=== PATIENT | female | born 1960 | race Caucasian/White ===

== ENCOUNTER 2022-03-29 17:14 | Inpatient (IN) | payer MEDICARE, SELFPAY ==
[2022-03-23 13:16] VITALS: BMI 25.7
--- NOTE | 2022-03-23 13:24 | PC.NURSE ---
Addendum entered by Aye De La Vega RN 03/24/22 12:06: PT INSTRUCTED TO CALL DR. OVERTON OFFICE FOR INSTRUCTIONS ON STOPPING ASPIRIN AND MELOXICAM. PT VERBALIZES UNDERSTANDING. Original Note: Report to the Outpatient Waiting Room, entrance under the green pavilion located off [facility], at time _0930_ on date _[id number]_. OR Time: _1130_. - You and your visitor will be asked a series of questions to screen for COVID 19 for your protection. - Only one visitor is allowed at this time. - The patient visitor is requested to leave or wait in car when not with patient. - A mask is required within the hospital. Patients may have clear liquids (water, carbonated beverages, clear teas, apple juice) until 3 hours prior to surgery with a maximum of 20 ounces. - No food from midnight until time of surgery Take the following medications with a SIP of water the morning of surgery: __Fluoxetine, Hydroxyzine, Linzess, and eye drops Medications to discontinue per physician ____None Date to take last dose Please no make-up, nail tuvaluan, hairspray, perfume, deodorant, or body powder the day of surgery. No jewelry (including any body piercings) or valuables the day of surgery, leave them at home. Please take a shower or bath the night before, or the morning of, surgery with an antibacterial soap. Wear comfortable, loose fitting clothing. - Jewelry must be removed prior to entering the operating room. Rings and piercings that are not removed may be cut off. - The hospital will not accept responsibility for valuables. - Please leave all valuables, including medications, at home the day of surgery. If you are going home after surgery, a licensed funeral car driver must drive you home. - NO public transportation without another adult. - We recommend that an adult stay with you for 24 hours following discharge. - We also recommend that you do not drive, make important decision, drink alcoholic beverages, or take any drugs that were not prescribed by your health care provider for at least 24 hours after your discharge time. Follow any additional instructions given to you from your surgeon. If you or anyone in your household have experienced Covid symptoms in the past week, please notify your surgeon or the nurse liaison at the phone number below for possible testing. Telephone instructions given to ___patient and asked if any additional questions and then verbalized understanding. Patient advised to call surgeon office or pre surgery nurse liaison [phone] if any additional questions.
[2022-03-29] VITALS (11 sets, daily range): BP systolic 96–151; BP diastolic 36–92; PULSE 71–81; RESP 13–20; TEMP 35.7–36.6; O2SAT 96–100
--- NOTE | ~2022-03-29 | XR_ITS ---
EXAMINATION: XR fluoroscopy no charge DATE: 03/29/2022 12:30 CDT INDICATION: LUMBAR INTERBODY FUSION . TECHNIQUE: 3 fluoroscopic images of the lumbar spine were obtained during lumbar interbody fusion per formed by the surgeon. I was not present in the operating room. Fluoroscopy exposure time was 4.9 sec onds. Cumulative dose was 2.87 mGy. COMPARISON: None FINDINGS: Images demonstrate posterior multilevel lumbar fusion with interbody device placement, likely spannin g L2-L5, with overlying soft tissue retractors. Minimal grade 1 listheses present in the upper lumbar spine. IMPRESSION: Fluoroscopic documentation of lumbar interbody fusion. Please refer to the operative note for complet e procedural details. Reviewed, dictated and finalized at location K. IMPRESSION: Fluoroscopic documentation of lumbar interbody fusion. Please refer to the oper ative note for complete procedural details.
--- NOTE | 2022-03-29 08:53 | WPDANESEPPF ---
Anes - Initial Pre Proc Eval Procedure: Operation Date: 03/29/22 11:30 Proposed Procedures p L2-3, L3-4 Posterior Lumbar Interbody Fusion - Craig Chen MD Date/Time: 03/29/22 08:53 Surgeon: Craig Chen MD Pre Op Diagnosis: lumbar spondylosis, lumbar stenosis Patient Data Age: 62 Gender: F Height: 1.6 m Weight: 66 kg Allergies Allergy/AdvReac Type Severity Reaction Status Date / Time Sulfa (Sulfonamide Allergy Severe Hives Verified 03/23/22 13:06 Antibiotics) Home Medications Medication Instructions Recorded Confirmed Type aspirin 81 mg tablet,delayed 81 mg PO DAILY 03/23/22 03/29/22 History release brimonidine 0.2 % eye drops 1 drp LEFT EYE TID 03/23/22 03/29/22 History estradiol 2 mg tablet 2 mg PO QAM 03/23/22 03/29/22 History fluoxetine 40 mg capsule 40 mg PO QAM 03/23/22 03/29/22 History fluticasone propionate 50 1 ea intranasal BID 03/23/22 03/29/22 History mcg/actuation nasal spray,suspension hydroxyzine HCl 25 mg tablet 25 mg PO BID 03/23/22 03/29/22 History ketorolac 0.5 % eye drops 1 drp EACH EYE QID 03/23/22 03/29/22 History linaclotide 145 mcg capsule 145 mcg PO QAM 03/23/22 03/29/22 History (Linzess) losartan 100 1 tablet PO QAM 03/23/22 03/29/22 History mg-hydrochlorothiazide 25 mg tablet meloxicam 15 mg tablet 15 mg PO QAM 03/23/22 03/29/22 History ofloxacin 0.3 % eye drops 1 drp EACH EYE TID 03/23/22 03/29/22 History omeprazole 40 mg capsule,delayed 40 mg PO QAM 03/23/22 03/29/22 History release Patient hx anesthesia problems: none Family hx anesthesia problems: none Results Review: All pre-operative results and documents have been reviewed as part of the pre-operative evaluation. [facility] Past Medical History Medical History (Updated 03/29/22 @ 08:54 by Nathan Espinal MD) Chronic GERD Chronic narcotic use Depression HTN (hypertension) PONV (postoperative nausea and vomiting) Social History Social History Years smoked: 40 Smoking status: Former smoker Tobacco type: cigarettes Smoking end date: 01/21/22 Living arrangements: with family Spiritual care concerns: No Anes - Eval Final PreProcedure Day of Procedure 03/29/22 08:53 Patient weight: normal Heart: regular rate and rhythm Lungs: clear to auscultation and normal air movement Airway: Mallampati scale class II Neurological: alert and oriented Last oral intake: >/= 8 hours ASA classification: III Emergent: no Anesthetic plan: proceed Anesthesia type and monitoring: general ETT Results Review: All pre-operative results and documents have been reviewed as part of the pre-operative evaluation. Informed Consent: The patient's anesthetic plan and its attendant risks and benefits were discussed with the patient/family/POA. Questions were solicited and answers provided to the satisfaction of the patient/family/POA.
[2022-03-29] MEDS: SCOPOLAMINE 1.5 MG PATCH TRANSDERM (10:15)
[2022-03-29] MEDS: LACTATED RINGERS 1,000 ML 30 ML IV CONT ×3 (10:15→16:35)
--- NOTE | 2022-03-29 11:10 | SUR.PREOP ---
Resting without needs or complaints.
--- NOTE | 2022-03-29 12:10 | PM.IMHP ---
H&P: HPI History of Present Illness Date/Time: 03/29/22 12:10 Chief Complaint: Back and leg pain Narrative: Silva is a 62-year-old female with back and leg pain related to spondylosis and stenosis at levels above the previous operation who presents now for L2-3 and L3-4 posterior lumbar interbody fusion. She has not changed since we saw her last. She has no specific muscle group weakness. She has no bowel or bladder difficulty. Review of Systems Review of Systems: Negative for 12 systems except as noted above. She specifically denies chest pain, shortness of breath, fever, chills, cough, nausea, vomiting or new urinary or bowel symptoms. [facility] Past Medical History Medical History Chronic GERD Chronic narcotic use Depression HTN (hypertension) PONV (postoperative nausea and vomiting) Social History Social History Years smoked: 40 Smoking status: Former smoker Tobacco type: cigarettes Smoking end date: 01/21/22 Living arrangements: with family Spiritual care concerns: No Meds Home Medications and Allergies Home Medications Medication Instructions Recorded Confirmed Type aspirin 81 mg tablet,delayed 81 mg PO DAILY 03/23/22 03/29/22 History release brimonidine 0.2 % eye drops 1 drp LEFT EYE TID 03/23/22 03/29/22 History estradiol 2 mg tablet 2 mg PO QAM 03/23/22 03/29/22 History fluoxetine 40 mg capsule 40 mg PO QAM 03/23/22 03/29/22 History fluticasone propionate 50 1 ea intranasal BID 03/23/22 03/29/22 History mcg/actuation nasal spray,suspension hydroxyzine HCl 25 mg tablet 25 mg PO BID 03/23/22 03/29/22 History ketorolac 0.5 % eye drops 1 drp EACH EYE QID 03/23/22 03/29/22 History linaclotide 145 mcg capsule 145 mcg PO QAM 03/23/22 03/29/22 History (Linzess) losartan 100 1 tablet PO QAM 03/23/22 03/29/22 History mg-hydrochlorothiazide 25 mg tablet meloxicam 15 mg tablet 15 mg PO QAM 03/23/22 03/29/22 History ofloxacin 0.3 % eye drops 1 drp EACH EYE TID 03/23/22 03/29/22 History omeprazole 40 mg capsule,delayed 40 mg PO QAM 03/23/22 03/29/22 History release Allergies Allergy/AdvReac Type Severity Reaction Status Date / Time Sulfa (Sulfonamide Allergy Severe Hives Verified 03/23/22 13:06 Antibiotics) Vital Signs Vital Signs - 24 hr 03/29/22 10:22 Temperature 98 F Pulse Rate 81 Respiratory Rate 20 Blood Pressure 151/92 H Pulse Oximetry 98 Oxygen Delivery Room Air Exam Narrative: The patient is a normal appearing white female supine in a hospital bed in no acute distress. She is awake, alert, oriented x3 with good fund of knowledge, recall events and fluent speech. Her face is symmetrical and her eyes were conjugate. There is no upper extremity drift, dysmetria or dyspraxia. Strength is 5/5 in all muscle groups of the bilateral lower extremities to direct confrontation in the laying position. Sensation is intact to light touch throughout the lower extremities. Clear to auscultation Regular rate and rhythm Assessment and Plan Assessment and plan (1) Lumbar stenosis: Code(s): M48.061 - Spinal stenosis, lumbar region without neurogenic claudication Status: Acute (2) Lumbar spondylosis: Code(s): M47.816 - Spondylosis without myelopathy or radiculopathy, lumbar region Status: Acute Plan Silva is a 62-year-old female with back and leg pain related to the above pathology presents now for L2-3 and L3-4 posterior lumbar interbody fusion. I again described to her that operation, its risks, potential benefits, the operative and postoperative course in detail and answered all her questions personally. She indicates understanding and elects to proceed with that operation.
--- NOTE | 2022-03-29 12:14 | WPDHPUPDATE1 ---
History and Physical Update Update Date/Time: 03/29/22 12:14 History and Physical has been reviewed, including an updated exam of the patient. There are NO changes in the patient's condition. Risks, benefits, and alternatives have been discussed and questions answered. Patient agrees to proceed with procedure.
[2022-03-29] MEDS: ceFAZolin 2 GM/D5W 50 ML 2 GM/50 ML BAG IVPB (12:52)
[2022-03-29] MEDS: LIDOCAINE/EPINEPHRINE 0.5%/1:200,000 50 ML VIAL INFILTRATE (13:28)
--- NOTE | 2022-03-29 15:47 | W.PM.PROC2 ---
Procedure Note - Detailed Date of Procedure 03/29/22 Pre-op Diagnosis lumbar spondylosis, lumbar stenosis Post-op Diagnosis Same Procedure Performed L2-3 and L3-4 posterior lumbar interbody fusion with revision of posterior instrumentation L4 L5 Surgeon Craig Chen MD Check Processing Clerk Nicolas Saxena Silva is a 62-year-old female with spondylosis and stenosis at the levels above her previous operation who presents for decompression fusion L2-4. Findings Stenosis and spondylosis Description of Procedure Silva was brought to the operating room in the supine position, was sedated, intubated and placed under general anesthesia in routine fashion. She was then turned into the prone position on a [place] table. The above operation her back was examined marked for incision Repka, prepped and draped in routine sterile fashion. Incision was marked over the L2-3 5 spinous processes in the midline. This area was injected with 0.5% lidocaine with [id number] epinephrine. Intravenous antibiotics given prior to incision. Incision was made with a 10 blade scalpel down to the lumbodorsal fascia. Subperiosteal dissection of the muscle soft tissue with spinous process and lamina at L2-4 was performed with a subperiosteal elevator and Bovie cautery. A verifying x-rays obtained to verify the level of operation. The spinous processes removed old to an L3 using a Trish rongeur. Kerrison punches, curved curettes and a Leksell rongeur were used to remove bone and ligament in the midline until the soft contents of the canal were encountered. A Midas Charles drill was used to resect the pars bilaterally at L2 and L3. The inferior articular process and facet of L2 and L3 could then be removed bilateral stenosis spinous processes were stripped free of soft tissue and morselized for later use interbody autograft. Kerrison punches and curved curettes were used to define a plane with dura and removed bone and ligament flush with the pedicle and through the foramina widely decompressing the exiting nerve roots. With the thecal sac retracted and protected the disc spaces were entered on the right using an 11 blade scalpel. Scrapers, curettes of various configurations, pituitary rongeur and a rasp were used to remove as much cartilaginous endplate and disc material as possible down to bleeding cortical flat surfaces on the opposing bones. This the disc space were sized and a 8 mm device was chosen for L3-4 and a 9 mm device for L2-3. These were filled with local autograft bone. The disc space was likewise filled with local autograft bone medially and anteriorly. The interbody devices were then placed with 2-3 mm countersink within the disc space diagonally. These were 22 mm interbody devices. Pedicle screw instrumentation was then performed at L2 and L3 by observing and palpating the pedicle while ankle was means particular process above the pedicle using Midas Charles drill with an a.m. 8 bit. The pedicle was then cannulated with a pedicle probe checked continuity with the ball probe, tapped with a 5.5 mm tap and a 6.5 x 50 mm screw was placed into each pedicle on each side. The caps at L4-L5 were removed with the appropriate armored truck driver. New 70 mm rods were placed some within the screw heads from 2-5. These were secured in position using the caps for that purpose. These were definitively tightened with the torque and anti torque device. An x-ray was performed to confirm good placement of the instrumentation which was confirmed. The wound was then copiously irrigated with bacitracin irrigation all bleeding was stopped with bipolar, Bovie cautery and Gelfoam thrombin powder. A medium Hemovac drain was left in the subfascial position. After the inferior and right of the incision. The wound was then closed in layered fashion with 2-0 Vicryl interrupted sutures in the some lumbodorsal fascia and Addy's layer. 3-0 Vicryl buried interrupted sutures were placed in the dermis and the ski
[2022-03-29] MEDS: fentaNYL CITRATE INJ (*CRX) 100 MCG/2 ML VIAL 25 MCG IV PUSH ×8 (16:14→16:39)
--- NOTE | 2022-03-29 16:31 | SUR.PHASEI ---
1631- Call to Jazmín Peoples CRNA patient has been given 125MCG of Fentanyl IVP and patient states it has not given her relief, pain remains severe. Per YAYA Noyola give patient remaining doses of Fentanyl for a total of 200MCG and administer 1MG dilaudid IVP. Will place orders and administer, see NOV.
[2022-03-29] MEDS: HYDROmorphone HCL INJ (*CRX) 1 MG/ML SYR IV PUSH (16:44)
--- NOTE | 2022-03-29 17:40 | ADMGEN ---
This patient, Silva Santana, was admitted to 2 Medical Room 259-. Patient/family oriented to hospital policies and general routines including ID bracelet, bed and alarms, visiting hours, pain management, procedures, bathroom and other care routines, personal items, smoking policy, room service/diet, and visiting hours. Information on how to activate the Rapid Response Team has been discussed. Patient/Family are encouraged to report perceived risks to care and to ask questions if they do not understand what they are told or what they should do.
[2022-03-29] MEDS: KCL 20 MEQ/D5/0.45% SOD CHL 1,000 ML 100 ML IV CONT (17:47)
[2022-03-29] MEDS: hydrOXYzine HCL 25 MG TABLET PO (17:48)
[2022-03-29] MEDS: ONDANSETRON INJ 4 MG/2 ML VIAL IV PUSH (17:48)
[2022-03-29] MEDS: HYDROmorphone HCL INJ (*CRX) 1 MG/ML SYR 0.5 MG IV PUSH ×2 (17:49→21:23)
[2022-03-29] MEDS: OFLOXACIN 0.3% OPHTH SOLN 5 ML BTL 1 DROP EACH EYE ×2 (17:58→21:26)
[2022-03-29] MEDS: KETOROLAC 0.5% OP SOLN 5 ML BOTTLE 1 DROP EACH EYE ×2 (17:58→20:03)
[2022-03-29] MEDS: HYDROcodone/acetaminophen (*CRX) 5-325 MG TABLET 1 TAB PO (20:02)
[2022-03-29] MEDS: DOCUSATE SODIUM 100 MG CAPSULE PO (20:02)
[2022-03-29] MEDS: FLUTICASONE PROPIONATE 0.05% NA SPR 16 GM BTL (*BKC) 1 SPRAY NASAL (20:03)
[2022-03-29] MEDS: BRIMONIDINE TARTRATE 0.2% OP SOLN 5 ML BTL 1 DROP LEFT EYE (20:03)
[2022-03-30 00:32] VITALS: BP 115/65; PULSE 79; RESP 20; TEMP 36.4; O2SAT 100
[2022-03-30] MEDS: HYDROcodone/acetaminophen (*CRX) 10-325 MG TABLET 1 TAB PO ×5 (00:40→21:07)
[2022-03-30 04:05] VITALS: BP 111/67; PULSE 68; RESP 20; TEMP 36.6; O2SAT 97
[2022-03-30] MEDS: KCL 20 MEQ/D5/0.45% SOD CHL 1,000 ML 100 ML IV CONT (04:43)
[2022-03-30] MEDS: OFLOXACIN 0.3% OPHTH SOLN 5 ML BTL 1 DROP EACH EYE ×3 (05:39→21:08)
[2022-03-30] MEDS: BRIMONIDINE TARTRATE 0.2% OP SOLN 5 ML BTL 1 DROP LEFT EYE ×3 (05:39→22:14)
[2022-03-30] MEDS: estradioL 1 MG TABLET 2 MG PO (08:28)
[2022-03-30] MEDS: FLUTICASONE PROPIONATE 0.05% NA SPR 16 GM BTL (*BKC) 1 SPRAY NASAL ×2 (08:29→21:08)
[2022-03-30] MEDS: FLUoxetine HCL 20 MG CAPSULE 40 MG PO (08:29)
[2022-03-30] MEDS: LINACLOTIDE 145 MCG CAPSULE PO (08:30)
[2022-03-30] MEDS: CYCLOBENZAPRINE HCL 10 MG TABLET PO (08:30)
[2022-03-30] MEDS: PANTOPRAZOLE 40 MG TABLET PO ×2 (08:31→21:06)
[2022-03-30] MEDS: DOCUSATE SODIUM 100 MG CAPSULE PO ×2 (08:31→21:07)
[2022-03-30] MEDS: LOSARTAN POTASSIUM 100 MG TABLET PO (08:32)
[2022-03-30] MEDS: hydroCHLOROthiazide 25 MG TABLET PO (08:32)
[2022-03-30] MEDS: hydrOXYzine HCL 25 MG TABLET PO ×2 (08:33→16:46)
[2022-03-30] MEDS: KETOROLAC 0.5% OP SOLN 5 ML BOTTLE 1 DROP EACH EYE ×4 (08:33→21:08)
--- NOTE | 2022-03-30 09:22 | WPDPN ---
Progress Note: A&P Assessment and Plan (1) Lumbar spondylosis: Code(s): M47.816 - Spondylosis without myelopathy or radiculopathy, lumbar region Status: Acute (2) Lumbar stenosis: Code(s): M48.061 - Spinal stenosis, lumbar region without neurogenic claudication Status: Acute Plan Silva is doing well postop day 1 status post L2-3 and L3-4 posterior lumbar interbody fusion. She will enjoy out of bed activity today and work with physical and occupational therapy towards progressive activity. We will try to wean her IV pain medicine. We will leave her drain in until tomorrow. Subjective Date/time seen: 03/30/22 09:22 Silva is postop day 1 status post L 2 3 and L3-4 posterior lumbar interbody fusion. She is doing well. She has expected discomfort at her operative site. She is having no new issues in her lower extremities. She is not having any bowel or bladder issues. She has been up to the bathroom once since surgery yesterday Review of Systems Neurologic: Comments: no weakness or numbness Exam Neuro: Other: strength is normal in the bilateral lower extremities to direct confrontation Sensation is intact to light touch throughout the lower extremities Dressing is clean dry intact. Objective Data Vital Signs Vital Signs: Vital Signs - 24 hr 03/29/22 10:22 03/29/22 15:57 03/29/22 16:10 Temperature 98 F 97.4 F L Pulse Rate 81 71 73 Respiratory Rate 20 13 17 Blood Pressure 151/92 H 96/36 L 110/60 Pulse Oximetry 98 100 100 Oxygen Delivery Room Air Simple Face Mask Simple Face Mask Oxygen Flow Rate 6 6 03/29/22 16:25 03/29/22 16:35 03/29/22 16:50 Temperature 97.2 F L Pulse Rate 77 75 76 Respiratory Rate 20 14 14 Blood Pressure 99/61 L 115/63 128/65 Pulse Oximetry 100 97 96 Oxygen Delivery Room Air Nasal Cannula Nasal Cannula Oxygen Flow Rate 2 2 03/29/22 17:05 03/29/22 17:40 03/29/22 17:55 Temperature 97.8 F 97.5 F L Pulse Rate 78 77 72 Respiratory Rate 13 14 14 Blood Pressure 114/68 126/77 124/70 Pulse Oximetry 99 97 100 Oxygen Delivery Nasal Cannula Oxygen Flow Rate 2 03/29/22 18:46 03/29/22 18:48 03/29/22 20:42 Temperature 97.6 F 96.2 F L Pulse Rate 72 75 Respiratory Rate 18 18 Blood Pressure 127/71 123/77 Pulse Oximetry 100 100 Oxygen Delivery Room Air Oxygen Flow Rate 03/30/22 00:32 03/30/22 04:05 Temperature 97.5 F L 97.9 F Pulse Rate 79 68 Respiratory Rate 20 20 Blood Pressure 115/65 111/67 Pulse Oximetry 100 97 Oxygen Delivery Oxygen Flow Rate Intake/Output Intake/Output: Intake & Output 03/27/22 03/28/22 03/29/22 03/30/22 23:59 23:59 23:59 23:59 Intake Total 3850 1460 Output Total 50 610 Balance 3800 850 Meds/Results Medications: Active Medications Generic Name Dose Route Start Last Admin Trade Name Freq PRN Reason Stop Dose Admin Hydrocodone Bitart/Acetaminophen 1 tab 03/29/22 17:14 03/29/22 20:02 Hydrocodone/Acetaminophen (*Crx) 5-325 Mg Tablet PO 1 tab Q4H PRN Administration Mild Pain (1-3) Hydrocodone Bitart/Acetaminophen 1 tab 03/29/22 17:14 03/30/22 08:33 Hydrocodone/Acetaminophen (*Crx) 10-325 Mg Tablet PO 1 tab Q4H PRN Administration Moderate Pain (4-6) Al Hydrox/Mg Hydrox/Simethicone 20 ml 03/29/22 17:14 Mag Hydrox/Al Hydrox/Simeth 30 Ml Udc PO Q4H PRN Indigestion/Heartburn Bisacodyl 10 mg 03/29/22 17:14 Bisacodyl 10 Mg Suppository RECTAL DAILY PRN Constipation Brimonidine Tartrate 1 drop 03/29/22 17:14 03/30/22 05:39 Brimonidine Tartrate 0.2% Op Soln 5 Ml Btl LEFT EYE 1 drop Q8HR SLICK Administration Cyclobenzaprine HCl 10 mg 03/29/22 17:14 03/30/22 08:30 Cyclobenzaprine Hcl 10 Mg Tablet PO 10 mg TID PRN Administration Muscle Spasms Docusate Sodium 100 mg 03/29/22 21:00 03/30/22 08:31 Docusate Sodium 100 Mg Capsule PO 100 mg Q12HR SLICK Administration Estradiol 2 mg
[2022-03-30 09:45] VITALS: BP 106/64; PULSE 70; RESP 16; TEMP 36.4; O2SAT 95
--- NOTE | 2022-03-30 10:29 | WPDANESPN ---
Anes - Prog Note Post-Op Date/Time: 03/30/22 10:29 Cardiovascular status: normal Respiratory status: normal Airway patency: baseline Mental status: baseline Post-Op hydration status: normal Vital Signs: Last Vital Signs Temp 36.4 C L 03/30/22 09:45 Pulse 70 03/30/22 09:45 Resp 16 03/30/22 09:45 BP 106/64 03/30/22 09:45 Pulse Ox 95 03/30/22 09:45 O2 Del Method Room Air 03/30/22 08:00 O2 Flow Rate 2 03/29/22 17:05 Pain Score (VAS): 2 I/O: Intake & Output 03/29/22 03/30/22 03/30/22 23:59 07:59 15:59 Intake Total 850 1240 220 Output Total 50 610 Balance 800 630 220 03/29/22 10:08 Blood Type O Positive Antibody Screen Negative Post-procedural complaints: none Patient Feedback: Patient satisfied with anesthetic care.
[2022-03-30] MEDS: HYDROmorphone HCL INJ (*CRX) 1 MG/ML SYR 0.5 MG IV PUSH ×3 (11:52→22:17)
[2022-03-30 12:05] VITALS: BMI 26.8
[2022-03-30 14:00] VITALS: BP 100/55; PULSE 67; RESP 16; TEMP 36.3; O2SAT 93
[2022-03-30 18:04] VITALS: BP 106/50; PULSE 70; RESP 16; TEMP 36.1; O2SAT 95
[2022-03-30 21:01] VITALS: BP 88/56; PULSE 58; RESP 16; TEMP 36.4
[2022-03-31] VITALS (7 sets, daily range): BP systolic 109–115; BP diastolic 50–75; PULSE 65–85; RESP 16; TEMP 36.1–36.7; O2SAT 94–98
[2022-03-31] MEDS: HYDROcodone/acetaminophen (*CRX) 10-325 MG TABLET 1 TAB PO ×5 (00:58→21:33)
[2022-03-31] MEDS: CYCLOBENZAPRINE HCL 10 MG TABLET PO (03:02)
[2022-03-31] MEDS: BRIMONIDINE TARTRATE 0.2% OP SOLN 5 ML BTL 1 DROP LEFT EYE ×3 (05:16→23:14)
[2022-03-31] MEDS: OFLOXACIN 0.3% OPHTH SOLN 5 ML BTL 1 DROP EACH EYE ×3 (05:16→23:14)
[2022-03-31] MEDS: estradioL 1 MG TABLET 2 MG PO (08:36)
[2022-03-31] MEDS: FLUTICASONE PROPIONATE 0.05% NA SPR 16 GM BTL (*BKC) 1 SPRAY NASAL ×2 (08:36→21:36)
[2022-03-31] MEDS: LOSARTAN POTASSIUM 100 MG TABLET PO (08:37)
[2022-03-31] MEDS: SENNA/DOCUSATE SODIUM TABLET 1 TAB PO ×2 (08:37→21:37)
[2022-03-31] MEDS: LINACLOTIDE 145 MCG CAPSULE PO (08:37)
[2022-03-31] MEDS: FLUoxetine HCL 20 MG CAPSULE 40 MG PO (08:37)
[2022-03-31] MEDS: PANTOPRAZOLE 40 MG TABLET PO ×2 (08:37→21:38)
[2022-03-31] MEDS: hydroCHLOROthiazide 25 MG TABLET PO (08:39)
[2022-03-31] MEDS: KETOROLAC 0.5% OP SOLN 5 ML BOTTLE 1 DROP EACH EYE ×4 (08:40→21:36)
[2022-03-31] MEDS: DOCUSATE SODIUM 100 MG CAPSULE PO ×2 (08:45→23:14)
[2022-03-31] MEDS: hydrOXYzine HCL 25 MG TABLET PO ×2 (08:45→17:17)
--- NOTE | 2022-03-31 11:51 | PCPTNOTE ---
The patient treatment was not able to be completed this morning. PT attempted 2x to see patient. Patient waiting for pain meds on first attempt and then eating lunch for second attempt. Will plan to continue treatment per plan of care.
[2022-03-31] MEDS: HYDROmorphone HCL INJ (*CRX) 1 MG/ML SYR 0.5 MG IV PUSH ×3 (12:26→23:18)
--- NOTE | 2022-03-31 12:38 | WPDPN ---
Progress Note: A&P Assessment and Plan (1) Lumbar spondylosis: Code(s): M47.816 - Spondylosis without myelopathy or radiculopathy, lumbar region Status: Acute (2) Lumbar stenosis: Code(s): M48.061 - Spinal stenosis, lumbar region without neurogenic claudication Status: Acute Plan Silva is progressing slowly. Will continue to attempt to wean IV pain medicine. She will work with Physical and Occupational therapy toward independent transfers and ambulation. Subjective Date/time seen: 03/31/22 12:38 Silva is postop day 2 status post two-level posterior lumbar interbody fusion. She is complaining of significant pain near her operative site and in her back. It seems somewhat out of proportion to her behavior and she arrived in pain even with just removing tape. She has been ambulatory but is not yet transferring independently. Exam Narrative: Strength and sensation are normal in the bilateral lower extremities to direct confrontation. Dressing is clean dry and intact. Objective Data Vital Signs Vital Signs: Vital Signs - 24 hr 03/30/22 13:53 03/30/22 14:49 03/30/22 14:00 Temperature 97.3 F L Pulse Rate 67 Respiratory Rate 16 Blood Pressure 100/55 L Pulse Oximetry 93 Oxygen Delivery Room Air Room Air 03/30/22 18:04 03/30/22 21:01 03/30/22 20:00 Temperature 97.0 F L 97.6 F Pulse Rate 70 58 L Respiratory Rate 16 16 Blood Pressure 106/50 L 88/56 L Pulse Oximetry 95 Oxygen Delivery Room Air 03/31/22 01:03 03/31/22 05:21 03/31/22 09:52 Temperature 97.6 F 97.6 F 98.0 F Pulse Rate 65 79 74 Respiratory Rate 16 16 16 Blood Pressure 115/54 L 111/56 L 109/50 L Pulse Oximetry 95 98 94 Oxygen Delivery 03/31/22 08:45 Temperature Pulse Rate Respiratory Rate 16 Blood Pressure Pulse Oximetry 94 Oxygen Delivery Room Air Intake/Output Intake/Output: Intake & Output 03/28/22 03/29/22 03/30/22 03/31/22 23:59 23:59 23:59 23:59 Intake Total 3850 2200 720 Output Total 50 1160 1155 Balance 3800 1040 -435 Meds/Results Medications: Active Medications Generic Name Dose Route Start Last Admin Trade Name Freq PRN Reason Stop Dose Admin Hydrocodone Bitart/Acetaminophen 1 tab 03/29/22 17:14 03/29/22 20:02 Hydrocodone/Acetaminophen (*Crx) 5-325 Mg Tablet PO 1 tab Q4H PRN Administration Mild Pain (1-3) Hydrocodone Bitart/Acetaminophen 1 tab 03/29/22 17:14 03/31/22 11:08 Hydrocodone/Acetaminophen (*Crx) 10-325 Mg Tablet PO 1 tab Q4H PRN Administration Moderate Pain (4-6) Al Hydrox/Mg Hydrox/Simethicone 20 ml 03/29/22 17:14 Mag Hydrox/Al Hydrox/Simeth 30 Ml Udc PO Q4H PRN Indigestion/Heartburn Bisacodyl 10 mg 03/29/22 17:14 Bisacodyl 10 Mg Suppository RECTAL DAILY PRN Constipation Brimonidine Tartrate 1 drop 03/29/22 17:14 03/31/22 05:16 Brimonidine Tartrate 0.2% Op Soln 5 Ml Btl LEFT EYE 1 drop Q8HR SLICK Administration Cyclobenzaprine HCl 10 mg 03/29/22 17:14 03/31/22 03:02 Cyclobenzaprine Hcl 10 Mg Tablet PO 10 mg TID PRN Administration Muscle Spasms Docusate Sodium 100 mg 03/29/22 21:00 03/31/22 08:45 Docusate Sodium 100 Mg Capsule PO 100 mg Q12HR SLICK Administration Estradiol 2 mg 03/30/22 09:00 03/31/22 08:36 Estradiol 1 Mg Tablet PO 2 mg QAM SLICK Administration Fluoxetine HCl 40 mg 03/30/22 09:00 03/31/22 08:37 Fluoxetine Hcl 20 Mg Capsule PO 40 mg QAM SLICK Administration Fluticasone Propionate 1 spray 03/29/22 21:00 03/31/22 08:36 Fluticasone Propionate 0.05% Na Spr 16 Gm Btl (*Bkc) NASAL 1 spray Q12HR SLICK Administration Hydrochlorothiazide 25 mg 03/30/22 09:00 03/31/22 08:39 Hydrochlorothiazide 25 Mg Tablet PO 25 mg QAM SLICK Administration Hydromorphone HCl 0.5 mg 03/29/22 17:14 03/31/22 12:26 Hydromorphone Hcl Inj (*Crx) 1 Mg/Ml Syr IV PUSH 0.5 mg Q2H PRN Administration Pain Ra
[2022-04-01] VITALS (9 sets, daily range): BP systolic 98–112; BP diastolic 40–68; PULSE 67–78; RESP 12–18; TEMP 36.2–37.5; O2SAT 94–100
[2022-04-01] MEDS: HYDROcodone/acetaminophen (*CRX) 10-325 MG TABLET 1 TAB PO ×3 (01:41→16:57)
[2022-04-01] MEDS: HYDROmorphone HCL INJ (*CRX) 1 MG/ML SYR 0.5 MG IV PUSH ×2 (04:51→23:13)
[2022-04-01] MEDS: BRIMONIDINE TARTRATE 0.2% OP SOLN 5 ML BTL 1 DROP LEFT EYE ×3 (06:36→21:24)
[2022-04-01] MEDS: OFLOXACIN 0.3% OPHTH SOLN 5 ML BTL 1 DROP EACH EYE ×3 (06:37→21:24)
[2022-04-01] MEDS: FLUTICASONE PROPIONATE 0.05% NA SPR 16 GM BTL (*BKC) 1 SPRAY NASAL ×2 (08:49→21:25)
[2022-04-01] MEDS: KETOROLAC 0.5% OP SOLN 5 ML BOTTLE 1 DROP EACH EYE ×4 (08:49→21:24)
[2022-04-01] MEDS: LOSARTAN POTASSIUM 100 MG TABLET PO (08:50)
[2022-04-01] MEDS: LINACLOTIDE 145 MCG CAPSULE PO (08:50)
[2022-04-01] MEDS: hydroCHLOROthiazide 25 MG TABLET PO (08:50)
[2022-04-01] MEDS: estradioL 1 MG TABLET 2 MG PO (08:50)
[2022-04-01] MEDS: FLUoxetine HCL 20 MG CAPSULE 40 MG PO (08:50)
[2022-04-01] MEDS: PANTOPRAZOLE 40 MG TABLET PO ×2 (08:51→21:25)
[2022-04-01] MEDS: hydrOXYzine HCL 25 MG TABLET PO ×2 (08:55→16:57)
[2022-04-01] MEDS: DOCUSATE SODIUM 100 MG CAPSULE PO ×2 (08:55→21:31)
--- NOTE | 2022-04-01 09:25 | PM.PNGS ---
Progress Note: A&P Assessment and Plan (1) Lumbar spondylosis: Code(s): M47.816 - Spondylosis without myelopathy or radiculopathy, lumbar region Status: Acute Assessment and Plan: Neurologically stble post lumbar fusion Continues to have incisional pain Will add percocet but decrease frequency of IV medication Work with PT today Anticipate d/c tomorrow Subjective Subjective Date/Time Seen: 04/01/22 09:25 PAtient remains with signfiicant pain Taking [place] 10 and IV dilaudid Exam Narrative: Awake, alert oriented x 3 Speech CF DENISHA EOMI Face= TML MAEW with good strength Dressing / incision CDI Objective Data Vital Signs Vital Signs: Vital Signs - 24 hr 03/31/22 09:52 03/31/22 14:10 03/31/22 18:10 Temperature 98.0 F 97.0 F L 97.1 F L Pulse Rate 74 75 85 Respiratory Rate 16 16 16 Blood Pressure 109/50 L 110/75 113/50 L Pulse Oximetry 94 95 94 03/31/22 20:52 04/01/22 00:24 04/01/22 05:15 Temperature 97.6 F 97.2 F L 97.8 F Pulse Rate 75 73 67 Respiratory Rate 16 12 16 Blood Pressure 111/64 111/43 L 108/57 L Pulse Oximetry 98 94 96 Intake/Output Intake/Output: Intake & Output 03/29/22 03/30/22 03/31/22 04/01/22 23:59 23:59 23:59 23:59 Intake Total 3850 2200 3090 420 Output Total 50 1160 2355 1500 Balance 3800 1040 735 -1080 Meds/Results Medications: Active Medications Generic Name Dose Route Start Last Admin Trade Name Freq PRN Reason Stop Dose Admin Hydrocodone Bitart/Acetaminophen 1 tab 03/29/22 17:14 03/29/22 20:02 Hydrocodone/Acetaminophen (*Crx) 5-325 Mg Tablet PO 1 tab Q4H PRN Administration Mild Pain (1-3) Hydrocodone Bitart/Acetaminophen 1 tab 03/29/22 17:14 04/01/22 06:40 Hydrocodone/Acetaminophen (*Crx) 10-325 Mg Tablet PO 1 tab Q4H PRN Administration Moderate Pain (4-6) Al Hydrox/Mg Hydrox/Simethicone 20 ml 03/29/22 17:14 Mag Hydrox/Al Hydrox/Simeth 30 Ml Udc PO Q4H PRN Indigestion/Heartburn Bisacodyl 10 mg 03/29/22 17:14 Bisacodyl 10 Mg Suppository RECTAL DAILY PRN Constipation Brimonidine Tartrate 1 drop 03/29/22 17:14 04/01/22 06:36 Brimonidine Tartrate 0.2% Op Soln 5 Ml Btl LEFT EYE 1 drop Q8HR SLICK Administration Cyclobenzaprine HCl 10 mg 03/29/22 17:14 03/31/22 03:02 Cyclobenzaprine Hcl 10 Mg Tablet PO 10 mg TID PRN Administration Muscle Spasms Docusate Sodium 100 mg 03/29/22 21:00 04/01/22 08:55 Docusate Sodium 100 Mg Capsule PO 100 mg Q12HR SLICK Administration Estradiol 2 mg 03/30/22 09:00 04/01/22 08:50 Estradiol 1 Mg Tablet PO 2 mg QAM SLICK Administration Fluoxetine HCl 40 mg 03/30/22 09:00 04/01/22 08:50 Fluoxetine Hcl 20 Mg Capsule PO 40 mg QAM SLICK Administration Fluticasone Propionate 1 spray 03/29/22 21:00 04/01/22 08:49 Fluticasone Propionate 0.05% Na Spr 16 Gm Btl (*Bkc) NASAL 1 spray Q12HR SLICK Administration Hydrochlorothiazide 25 mg 03/30/22 09:00 04/01/22 08:50 Hydrochlorothiazide 25 Mg Tablet PO 25 mg QAM SLICK Administration Hydromorphone HCl 0.5 mg 03/29/22 17:14 04/01/22 04:51 Hydromorphone Hcl Inj (*Crx) 1 Mg/Ml Syr IV PUSH 0.5 mg Q2H PRN Administration Pain Rated 7-10 Hydroxyzine HCl 25 mg 03/29/22 17:14 04/01/22 08:55 Hydroxyzine Hcl 25 Mg Tablet PO 25 mg BID SLICK Administration Ketorolac Tromethamine 1 drop 03/29/22 17:14 04/01/22 08:49 Ketorolac 0.5% Op Soln 5 Ml Bottle EACH EYE 1 drop QID SLICK Administration Linaclotide 145 mcg 03/30/22 09:00 04/01/22 08:50 Linaclotide 145 Mcg Capsule PO 145 mcg QAM SLICK Administration Losartan Potassium 100 mg 03/30/22 09:00 04/01/22 08:50 Losartan Potassium 100 Mg Tablet PO 100 mg DAILY SLICK Administration Ofloxacin 1 drop 03/29/22 17:14 04/01/22 06:37 Ofloxacin 0.3% Ophth Soln 5 Ml Btl EACH EYE 1 drop Q8HR SLICK Administration Ondansetron HCl 4 mg 03/29/22 17:14 03/29/22 1
[2022-04-01] MEDS: oxyCODONE/ACETAMINOPHEN (*CRX) 5-325 MG TABLET 1 TABLET PO ×2 (11:54→21:24)
[2022-04-02] VITALS (7 sets, daily range): BP systolic 81–115; BP diastolic 50–74; PULSE 64–80; RESP 17–20; TEMP 36.6–36.7; O2SAT 95–100
[2022-04-02] MEDS: HYDROcodone/acetaminophen (*CRX) 10-325 MG TABLET 1 TAB PO (02:34)
--- NOTE | 2022-04-02 05:04 | PC.NURSE ---
Pt requesting pain medication at this time, BP is currently 94/59, pt informed it is not safe to administer any narcotic pain medication at this time. Pt verbalized understanding.
[2022-04-02] MEDS: oxyCODONE/ACETAMINOPHEN (*CRX) 5-325 MG TABLET 1 TABLET PO ×2 (06:41→13:05)
[2022-04-02] MEDS: OFLOXACIN 0.3% OPHTH SOLN 5 ML BTL 1 DROP EACH EYE (06:42)
[2022-04-02] MEDS: BRIMONIDINE TARTRATE 0.2% OP SOLN 5 ML BTL 1 DROP LEFT EYE (06:42)
[2022-04-02] MEDS: FLUoxetine HCL 20 MG CAPSULE 40 MG PO (08:58)
[2022-04-02] MEDS: estradioL 1 MG TABLET 2 MG PO (08:58)
[2022-04-02] MEDS: PANTOPRAZOLE 40 MG TABLET PO (08:59)
[2022-04-02] MEDS: KETOROLAC 0.5% OP SOLN 5 ML BOTTLE 1 DROP EACH EYE ×2 (08:59→13:06)
[2022-04-02] MEDS: FLUTICASONE PROPIONATE 0.05% NA SPR 16 GM BTL (*BKC) 1 SPRAY NASAL (08:59)
[2022-04-02] MEDS: hydrOXYzine HCL 25 MG TABLET PO (08:59)
[2022-04-02] MEDS: LINACLOTIDE 145 MCG CAPSULE PO (08:59)
[2022-04-02] MEDS: LOSARTAN POTASSIUM 100 MG TABLET PO (08:59)
[2022-04-02] MEDS: hydroCHLOROthiazide 25 MG TABLET PO (08:59)
[2022-04-02] MEDS: HYDROmorphone HCL INJ (*CRX) 1 MG/ML SYR 0.5 MG IV PUSH (09:00)
[2022-04-02] MEDS: DOCUSATE SODIUM 100 MG CAPSULE PO (09:01)
--- NOTE | 2022-04-02 13:00 | PM.DS ---
DS: Admitting Diagnosis Discharge Date 04/02/2022 Admitting Diagnosis Lumbar spondylosis, lumbar stenosis DS: Discharge Diagnosis Discharge Diagnosis (1) Lumbar spondylosis: Code(s): M47.816 - Spondylosis without myelopathy or radiculopathy, lumbar region Status: Acute (2) Lumbar stenosis: Code(s): M48.061 - Spinal stenosis, lumbar region without neurogenic claudication Status: Acute DS: Summary Hospital Course Reason for hospitalization: Silva is a 62-year-old female with back and leg pain related to the above pathology presented for posterior lumbar interbody fusion. Hospital Course: Kristen was taken to the operating room on the day of admission where the aforementioned operation was performed without complication. The patient went to the floor postoperatively. Physical and occupational therapy were involved in her care. Her drain and [place] catheter removed on postoperative day 1. Progressively she began to make transfers and ambulate independently. By postoperative day 4 she was eating, ambulating, emptying her bladder and her pain was under control with by mouth pain medicine. Her wounds were clean dry and intact. She was afebrile with stable vital signs. She was neurologically intact. She was therefore like to be discharged home. Status at Discharge Cognitive/behavioral status at discharge: Stable Time Spent with Patient Time attestation: Total time spent providing and/or coordinating discharge services: 25 minutes Exam Narrative: Strength and sensation are normal in the bilateral lower extremities to direct confrontation. Her wound is clean dry and intact. Gait station and transfers are independent study. Discharge Plan Discharge Attending physician on discharge: Craig Chen Discharging Clinician: Craig Chen Anticipated Discharge Date/Time: 04/02/22 12:48 Patient Disposition: Home, Self-Care Activity: may shower Diet: regular Wound Care Instructions: incision open to air Discharge Instructions: Remove the Scopolamine patch that was placed behind your right ear on 03/29/2022 in 72 hours or less. Wash your hands after touching. INSTRUCTIONS AFTER YOUR LUMBAR LAMINECTOMY/DECOMPRESSION/FORAMINOTOMY/DISCECTOMY Incisions may be closed with either: Steri-strips (let them wear off on their own). Surgical glue (let it peel off on its own). Sutures or patti (call the office for an appointment to have these removed). Keep the incision dry for the first three days after surgery. Never apply ointments or lotions to the incision. The incision should be checked daily. Notify the office if there is drainage, redness, or if you have fever with a temperature of over 100 degrees. After the third postop day, it is okay to shower. Let soap and water run over your incision. No soaking in a tub, hot tub, or pool for at least one month. You are encouraged to walk as much as comfortable, with assistance as needed. For example, it may be beneficial to walk short distances hourly during the waking hours and gradually increase walking during your recovery period. Fatigue can be common. Avoid any bending, heavy lifting, twisting movements. You have an [id number] lift restriction until further advised by your physician (A gallon of milk weighs eight pounds). Make frequent position changes, avoiding long periods of sitting. Try not to sit more than 30 minutes at a time. You may engage in sexual activity in two weeks as tolerated. No housework, especially vacuuming, making beds, or doing laundry until seen in the office. You may walk stairs carefully. Minimize car rides for two weeks. Driving can usually be resumed within two weeks; however, you may not drive at that time if still taking pain medications. Once you are discharged from the hospital, please call the office to set up your postop appointment. The physician may order pain medication and/or muscle re
== END 2022-04-02 14:40 | disposition home or self-care (01) | DRG 460 ==
LOC: ANH2MED 19:27 → ANHSURGERY 04-08 06:24 → ANH2MED 04-08 06:24
PROVIDERS: Admitting Provider Neurological Surgery; PCP Internal Medicine; Visit Provider Neurological Surgery
PROC: 0SG10AJ Fusion of 2 or more Lumbar Vertebral Joints with Interbody Fusion Device, Posterior Approach, Anterior Column, Open Approach (ICD-10-PCS; CPT 22612; principal; 2022-03-29 11:30)
DX: M48.061 Spinal stenosis, lumbar region without neurogenic claudication (principal); M47.816 Spondylosis without myelopathy or radiculopathy, lumbar region; I10 Essential (primary) hypertension; K21.9 Gastro-esophageal reflux disease without esophagitis; F32.A Depression, unspecified; Z87.891 Personal history of nicotine dependence; Z79.82 Long term (current) use of aspirin
CPT/HCPCS: 22633; 22634; 22853 ×2; 20936; 22842; 36415; 86850; 86900; 86901; 97116; 97161; 97165; 97530; 97535; 99199; A9270; G0378; J0690; J1100; J1170; J2250; J2370; J2405; J2704; J2710; J3010; J3480; J7120

== ENCOUNTER 2022-05-16 15:23 | Outpatient (CLI) | payer MEDICARE, SELFPAY ==
--- NOTE | ~2022-05-16 | XR_ITS ---
EXAMINATION: XR lumbar spine 2-3V DATE: 05/16/2022 16:01 INDICATION: Lumbar spine fusion procedure. Postop. TECHNIQUE: 3 views of lumbar spine were obtained. COMPARISON: Lumbar spine fluoroscopy 03/29/2022 FINDINGS: There is 13 degrees dextroscoliosis of lumbar spine. There is 4 mm anterolisthesis of L4 on L5. There is 4 mm retrolisthesis of L1 on L2. Vertebral body heights are normal. There are changes o f anterior and posterior fusion procedures from L2 to L5 with interbody devices and pedicle screws. T here is severely decreased disc height at T11-T12, T12-L1, L1-L2, and L5-S1 with endplate remodeling. IMPRESSION: 1. Anterior and posterior fusion procedures from L2 to L5. 2. Severe thoracolumbar spondylosis. 3. Lumbar dextroscoliosis. Reviewed, dictated and finalized at location A.
== END 2022-05-16 15:24 | disposition home or self-care (01) ==
PROVIDERS: PCP Internal Medicine; Visit Provider Neurological Surgery
DX: M47.895 Other spondylosis, thoracolumbar region (principal); Z98.1 Arthrodesis status
CPT/HCPCS: 72100